=== PATIENT | male | born 2000 | race Hispanic/Latino ===

== ENCOUNTER 2024-11-30 20:51 | Emergency (ER) | payer SELFPAY ==
[~2024-11-30] VITALS: Ht 177.8 cm; Wt 83.9 kg
--- NOTE | 2024-11-30 20:57 | ERN ---
ED Note History of Present Illness Stated Complaint: F/O EYE Chief Complaint: Eye Problems Time Seen by MD: 20:52 Time Seen by Midlevel: 20:52 Dictation: Mr Alberto is a 24 year old male with no reported chronic health issues who presented to the emergency department this evening for evaluation of eye pain. He states that at 11:00 a.m. he was wood working and he got dust into his left eye. A co-worker irrigating his eye well. When he got home he was still experiencing tearing and irritation of the left eye. Both eyes have erythema; left greater than right. Unknown last tetanus shot. Allergies: Coded Allergies: No Known Allergies (Unverified Allergy, Unknown, 11/30/24) Past Medical History Surgical History: None PSYCH History: no pertinent psych hx Social History: Negative RN Note Reviewed/Agreed w/PFSH: Yes Review of System Dictation REVIEW OF SYSTEMS: CONSTITUTIONAL: Patient denies fevers, chills, sweats and weight changes. EYES: Reports pain/irritation with tearing to left eye. Reports redness to both eyes. EARS, NOSE, AND THROAT: No difficulties with hearing. No symptoms of rhinitis or sore throat. CARDIOVASCULAR: Patient denies chest pains, palpitations, orthopnea and paroxysmal nocturnal dyspnea. RESPIRATORY: No dyspnea on exertion, no wheezing or cough. GI: No nausea, vomiting, diarrhea, constipation, abdominal pain, hematochezia or melena. : No urinary hesitancy or dribbling. No nocturia or urinary frequency. No a bnormal urethral discharge. MUSCULOSKELETAL: No myalgias or arthralgias. NEUROLOGIC: No chronic headaches, no seizures. Patient denies numbness, tingling or weakness. PSYCHIATRIC: Patient denies problems with mood disturbance. No problems with anxiety. ENDOCRINE: No excessive urination or excessive thirst. DERMATOLOGIC: Patient denies any rashes or skin changes. Initial Vital Sign VS Vital Signs Date Time Temp Pulse Resp B/P (MAP) Pulse Ox O2 Delivery O2 Flow Rate FiO2 11/30/24 20:53 97.9 89 16 156/90 100 Room Air Physical Exam Dictation Vital signs: Reviewed. afebrile. Constitutional: No acute distress. Non-toxic appearing. Head/Face: Normocephalic, atraumatic. Eyes: BOOKER bilaterally 3mm. Visual acuity with glasses; OD 20/100, OS 20/30. Right eyelid everted; no FB. No swelling of right eyelid. Instilled tetracaine drop. Fluorescein stain negative. No FB or globe disruption. Left eyelid everted; noted small dawn colored FB; removed with saline soaked q tip. No swelling of lid. BOOKER 3mm. Drops tetracaine to left eye. Fluorescein stain to left eye revealed positive stain present to cornea 3 o clock; no FB, no sign of globe disruption Erythromycin ointment ribbon administered. ENT: Pinnas intact and no signs of trauma or erythema. Ear canals clear and no discharge. TMs no erythema. No nasal discharge or bleeding noted. Oropharynx with no exudate, redness, swelling, masses, exudates, or evidence of obstruction. Uvula midline. Mucous membranes moist. Neck: Trachea midline, no masses palpated, and no cervical lymphadenopathy. No swelling. Supple, full range of motion. Chest/Axilla: No tenderness, no crepitus, no paradoxical movement, no retractions. Cardiovascular: Regular rate, regular rhythm, no murmur, no gallops. Symmetric pulses. No peripheral edema. Respiratory: Respirations even and unlabored. Lung sounds clear; no wheezes, rales or rhonchi. Gastrointestinal: Inspection is normal. No distention is appreciated. Bowel sounds are normal. No mass or organomegaly . There is no tenderness. No rebound. No rigidity. No voluntary or involuntary guarding. No Hills's sign. Neurological: Normal speech, gross motor function intact, gross sensory function intact. No focal weakness/Paresthesia. Musculoskeletal/Extremities: All extremities have full range of motion, no pain or tenderness on palpation. Symmetric pulses. Integumentary: Intact. Skin is normal color, warm and dry. Cap refill less than 3 seconds. ED Course ED Course Orders Procedure Category Date Status Time Tetracaine Hcl PHA 11/30/24 In Process (Pontocaine 0.5% 21:00 Fluorescein Sodium PHA 11/30/24 In Process (Yzawf-Q-Tjmtk At) 21:00 Visual Acuity Test CPOE 11/30/24 Transmitted (Er) 20:54 Tetanus,Diphtheria PHA 11/30/24 Complete Tox [Adult] (Diphther 21:00 Current Medications Medications (Trade) Dose Ordered Sig/Jennifer Route PRN Reason Start Time Stop Time Status Last Admin Dose Admin Fluorescein Sodium (Vevpv-V-Dfypo At) 1 strip ONCE OP 11/30/24 21:00 12/01/24 06:00 Tetanus/ Diphtheria Toxoids Adsorbed (DiphthERIA-teTANUS TOXOID [ADULT]/ DECAVAC) 0.5 ml ONCE ONCE IM 11/30/24 21:00 11/30/24 21:04 DC Tetracaine HCl (Pontocaine 0.5% Ophth Soln) 1 OR 2 DROPS ONCE OP 11/30/24 21:00 12/01/24 06:00 Vital Signs Date Time Temp Pulse Resp B/P (MAP) Pulse Ox O2 Delivery O2 Flow Rate FiO2 11/30/24 20:53 97.9 89 16 156/90 100 Room Air Visual acuity with glasses; OD 20/100, OS 20/30. Right eyelid everted; no FB. No swelling of right eyelid. Instilled tetracaine drop. Fluorescein stain negative. No FB or globe disruption. Left eyelid everted; noted small dawn colored FB; removed with saline soaked q tip. No swelling of lid. BOOKER 3mm. Drops tetracaine to left eye. Fluorescein stain to left eye revealed positive stain present to cornea 3 o clock; no FB, no sign of globe disruption Erythromycin ointment ribbon administered. Findings were as with patient and his mother. He was given information for follow up with [facility]. He declined offer of pain medication. Tetanus was updated. Medical Decision Making MDM MDM: Differential diagnosis: FB eye, corneal abrasion, globe injury Rationale: Tests considered and ordered secondary to shared decision making include: Eye exam, fluorescein stain Previous outside records reviewed: Old ER visits. Risk of complication and/or morbidity or mortality of patient management: None Medications-Per medication reconciliation Need for hospitalization: Patient does not meet criteria for hospitalization. Need for emergency major/minor surgery: No There are no social concerns with this patient. Prescription drug management: Erythromycin ophthalmic ointment Prescriptions will include symptomatic care Patient's prior external medical records from other ER visits were reviewed by me as indicated. Prior testing and results from previous visits were reviewed. Prior tests were taken into account with medical decision making and resource utilization, independent historian/historians were used to obtain complete medical history. I independently interpreted the test that were performed, results were reviewed by me and considered findings on radiology if ordered. Medical management and examination interpretation discussions were had by me with other qualified healthcare professionals as indicated for the patient's care. DX & DISP Disposition: Discharge Departure Impression: Primary Impression: Corneal abrasion Additional Impression: Foreign body of left eye Condition: Stable Scripts Erythromycin Base (Erythromycin) 5 Mg/Gram (0.5 %) Oint...g. 1 APPL OP QID for 5 Days, #3.5 GM 0 Refills apply 1 cm ribbon into the lower conjunctival sac Prov: ZARIA PETERSON NP 11/30/24 Additional Instructions: No contacts. Glasses only. Continue erythromycin ointment apply 1 cm ribbon 4 times daily for seven days. You will need to follow up with power tool repairer. [facility] [address] [facility] phone [phone] (call in AM for appointment). May take [id number] Tylenol or ibuprofen as needed for discomfort. Return to the emergency department for any worsening of sympt oms or concerns. Referrals: CAROLYN ROBERTS MD (PCP) Time of Disposition: 21:48 ZARIA PETERSON NP Nov 30, 2024 20:57
[2024-11-30] MEDS ORDERED: ERYT1OIN7 OP (21:46)
[2024-11-30 21:55] VITALS: BP 127/65; PULSE 78; RESP 20; TEMP 97; O2SAT 98
[2024-11-30] MEDS: ERYTHROMYCIN BASE 0.5% OPHTH OINT 1 GM TUBE OU ONE (22:02)
[2024-11-30] MEDS: TETRACAINE HCL 0.5% 4 ML OPHTH SOLN OP SCH (22:02)
[2024-11-30] MEDS: FLUORESCEIN SODIUM 1 STRIP STRIP OP SCH (22:02)
[2024-11-30] MEDS: teTANUS/diphthERIA TOXOID [ADULT] 0.5 ML VIAL IM ONE (22:03)
== END 2024-11-30 22:19 | disposition home or self-care (01) ==
LOC: EDH 20:51
DX: T15.12XA Foreign body in conjunctival sac, left eye, initial encounter (principal); S00.212A Abrasion of left eyelid and periocular area, initial encounter; W44.8XXA Other foreign body entering into or through a natural orifice, initial encounter; Y93.89 Activity, other specified; Y92.89 Other specified places as the place of occurrence of the external cause; Y99.8 Other external cause status
CPT/HCPCS: 90471; 90714; 99284

== ENCOUNTER 2024-12-21 10:47 | Emergency (ER) | payer SELFPAY ==
[~2024-12-21] VITALS: Ht 177.8 cm; Wt 85.3 kg
[~2024-12-21 10:47] MED LIST: ERYT1OIN7 OP
--- NOTE | 2024-12-21 10:59 | NUR ---
WOUND CARE PROVIDED TO LEFT 2ND DIGIT LACERATION. NOTE NO ACITVE BLEEDING. VERBAL AND WRITTEN INSTRUCTINS GIVEN ON WOUND CARE AND DERMABOND. VERBALIZED UNDERSTANDING.
--- NOTE | 2024-12-21 11:00 | NUR ---
STATES LAST TETANUS 2 WEEKS AGO
[2024-12-21 11:01] VITALS: BP 129/77; PULSE 71; RESP 14; TEMP 97.9; O2SAT 97
[2024-12-21] MEDS: OCTYL 2-CYANOACRYLATE 1 EACH TP ONE ×2 (11:01)
--- NOTE | 2024-12-21 11:01 | ERN ---
General Chief Complaint: Finger Injury Stated Complaint: 2ND LEFT FINGER LAC Time Seen by MD: 10:49 History of Present Illness Initial Comments That is yellow male who presents for finger laceration. Patient was laceration to the pointer finger of the right hand, proximally 1 cm, superficial linear. Full range of motion. Scalp with a glass, there is no foreign bodies. No other injuries. No medical conditions. Tetanus is up-to-date. Allergies: Coded Allergies: No Known Allergies (Unverified Allergy, Unknown, 11/30/24) Home Meds Active Scripts Erythromycin Base (Erythromycin) 5 Mg/Gram (0.5 %) Oint...g., 1 APPL OP QID for 5 Days, #3.5 GM 0 Refills apply 1 cm ribbon into the lower conjunctival sac Prov:ZARIA PETERSON NP 11/30/24 Past Medical History Past Medical History: No Pertinent History Past Surgical History: None Social History Social History: Negative ROS Dictation CONSTITUTIONAL: No chills, no fever, no weakness, no diaphoresis, no malaise. HEAD/FACE: No signs of trauma. EENT: No eye pain, no blurred vision, no tearing, no double vision, no ear pain, no ear discharge, no nose pain, no nasal congestion, no throat pain, no throat swelling, no mouth pain. RESPIRATORY: No cough, no orthopnea, no SOB, no stridor, no wheezing. CARDIOVASCULAR: No chest pain, no edema, no palpitations, no syncope. GASTROINTESTINAL/ABDOMINAL: No abdominal pain, no constipation, no diarrhea, no nausea, no vomiting. GENITOURINARY: No abnormal discharge, no dysuria, no frequent urination, no hem aturia. No complaints of pain in the genitals. MUSCULOSKELETAL: Finger laceration INTEGUMENTARY: No change in color, no change in hair/nails, no dryness, no lesion, no lumps, no rash. NEUROLOGICAL/PSYCH: No anxiety, not depressed, no emotional problem, no headache, no numbness, no pre-existing deficit, no history of seizures, no tremors, no weakness. HEMATOLOGIC/LYMPHATIC: Not anemic, no history of blood clots, no apparent bleeding, no bruising, glands not swollen. All Systems Negative, Except as Noted. Physical Exam Physical Exam Dictation VITAL SIGNS: Reviewed. GENERAL APPEARANCE: Alert, oriented x3, no acute distress, obese. HEAD AND FACE: Non-traumatic. EYES: PERRL, pink conjunctivas, eyelid no trauma, anterior chamber clear. EARS: Pinnas intact and no signs of trauma or erythema. Ear canals clear and no discharge. TMs no erythema. NOSE: No discharge, no bleeding. OROPHARYNX: Mouth normal, teeth no caries, tongue pink. Pharynx clear, no erythema. Tonsils no exudates, no abscesses noted. Mucous membrane moist. NECK: Supple, non-tender, no thyromegaly, no masses, no JVD, no bruits. BREAST: Deferred. CHEST: No tenderness, no crepitus, no paradoxical movement, no retractions. LUNGS: Clear, well-ventilated, symmetric, no rales, no wheezing, no rhonchi, no stridor, good breath sounds bilaterally. HEART: Regular rate, regular rhythm, no murmur, no gallops. VASCULAR: No peripheral edema. ABDOMEN: Soft, positive bowel sounds, nondistended, no guarding, nontender, no rebound, no masses no hepatomegaly, no splenomegaly, no Hills's sign, no hernias. RECTAL: Deferred. GENITAL: Deferred. NEUROLOGICAL: Normal speech, gross motor function intact, gross sensory function intact. MUSCULOSKELETAL: Neck nontender, full range of motion, back nontender, full range of motion. Finger laceration EXTREMITIES: Nontender, full range of motion. SKIN: Color pink, dry, no turgor, no rash, no lacerations, no abrasions, no contusions. LYMPHATICS: Deferred. MDM CC: Finger laceration Historian: Patient Comorbidities: None Limitations by social determinants of health: Uninsured Differential diagnosis: Finger laceration On clinical exam very superficial wound, it was no foreign bodies. Cleaned and repaired no complications. No signs of tendon or bony involvement. No complications we will DC ED Course Vital Signs Date Time Temp Pulse Resp B/P (MAP) Pulse Ox O2 Delivery O2 Flow Rate FiO2 12/21/24 10:48 97.9 80 16 136/87 98 Room Air 0 Laceration/Wound Repair Laceration/Wound Repair : Wound Location: upper extremity Wound Length (cm): 1 Wound Explored: clean Betadine Prep?: Yes Wound Repaired With: Dermabond DX & DISP Disposition: Discharge Departure Impression: Primary Impression: Laceration of finger, right Condition: Stable Additional Instructions: Your finger laceration was repaired with skin glue. This will come off on its own. Keep it clean with soap and water. Keep it covered with a Band-Aid. Return to the emergency department as needed. Referrals: SELF,REFERRAL (PCP) HECTOR ABARCA DO Dec 21, 2024 11:01
== END 2024-12-21 11:09 | disposition home or self-care (01) ==
LOC: EDH 10:47
DX: S61.211A Laceration without foreign body of left index finger without damage to nail, initial encounter (principal); W25.XXXA Contact with sharp glass, initial encounter; Y93.89 Activity, other specified; Y92.89 Other specified places as the place of occurrence of the external cause; Y99.8 Other external cause status
CPT/HCPCS: 12001; 99282